=== PATIENT | male | born 2005 | race Two or more races ===

== ENCOUNTER 2025-01-28 19:55 | Emergency (ER) | payer MEDICAID, SELFPAY ==
[2025-01-28 19:58] VITALS: BMI 22.8
[2025-01-28 20:36] VITALS: BP 112/78; PULSE 66; RESP 18; TEMP 37.2; O2SAT 99
--- NOTE | 2025-01-28 20:55 | PD.EDNV ---
Nausea/Vomit./Diarrhea-RME/HPI General Chief complaint: Nausea/Vomiting/Diarrhea Stated complaint: N/V, RIGHT RIB PAIN, NON TRAUMATIC Time Seen by Provider: 01/28/25 20:30 Source: patient, RN notes reviewed and old records reviewed Arrival date/time: 01/28/25 19:55 Mode of arrival: ambulatory Limitations: no limitations RME / HPI RME / HPI Narrative: 19yom presents to ED for nausea and times episodes of vomiting that started today. Patient now c/o abdominal cramping to RUQ. No fever, shortness of breath, diarrhea or urinary symptoms reported. No medications or treatments since onset. Related Data Previous Rx's ?Medication ?Instructions ?Recorded dicyclomine 20 mg tablet 20 mg PO Q6HR PRN abdominal pain 01/28/25 #30 tabs ibuprofen 600 mg tablet 600 mg PO Q6H PRN pain #20 tabs 01/28/25 ondansetron 4 mg disintegrating 4 mg PO Q6H PRN nausea and 01/28/25 tablet vomiting #10 tabs Allergies Allergy/AdvReac Type Severity Reaction Status Date / Time No Known Allergies Allergy Verified 01/28/25 19:58 Review of Systems Review of Systems Systems Reviewed: All systems reviewed, normal except as documented Constitutional Constitutional: Denies chills and Denies fever(s) Cardiovascular Cardiovascular: Denies chest pain and Denies dyspnea Respiratory Respiratory: Denies dyspnea Gastrointestinal Gastrointestinal: Reports abdominal pain, Denies loose stools, Reports nausea and Reports vomiting Genitourinary Genitourinary: Denies dysuria, Denies flank pain and Denies hematuria Past Medical History Surgical History OTHER SURGICAL HX: Denies past surgical history Social History SMOKING STATUS: Never smoker SUBSTANCE USE: does not use ALCOHOL: Never Past Medical History Comments PMH COMMENT: Denies past medical history ED Exam General Limitations: Present no limitations General appearance: Present alert and in no apparent distress Head Head exam: Present atraumatic and normocephalic Eye Eye exam: Present normal appearance, PERRL and EOMI ENT ENT exam: Present normal exam and mucous membranes moist Neck Neck exam: Present normal inspection and full ROM Chest Chest inspection: Present normal inspection and symmetric chest wall rise Respiratory Respiratory exam: Present normal lung sounds bilaterally; Absent respiratory distress Cardiovascular Cardiovascular exam: Present regular rate and normal rhythm Abdominal Exam Abdominal exam: Present soft and tenderness (RUQ, mild); Absent distention, guarding or rebound Extremities Exam Extremities exam: Present normal inspection and full ROM Neurological Exam Neurological exam: Present alert and oriented X3 Psychiatric Psychiatric exam: Present normal affect and normal mood Skin Skin exam: Present warm, dry, intact and normal color Course Quality Measures none Orders Category Date Time Status CBC Stat Lab 01/28/25 21:00 Completed CMP [Comprehensive Metabolic Panel] Stat Lab 01/28/25 21:00 Completed Drug Screen,Urine Stat Lab 01/28/25 21:39 Completed Lipase Stat Lab 01/28/25 21:00 Completed UA [Urinalysis] Stat Lab 01/28/25 21:39 Completed Ketorolac Inj [Toradol Inj] Med 01/28/25 20:54 Discontinued 30 mg IM X1 ONE Ondansetron Odt [Zofran Odt] Med 01/28/25 20:54 Discontinued 4 mg PO X1 ONE Vital Signs Vital signs: Vital Signs Temperature 99 F 01/28/25 20:36 Pulse Rate 66 01/28/25 20:36 Respiratory Rate 18 01/28/25 20:36 Blood Pressure 112/78 01/28/25 20:36 Pulse Oximetry (%) 99 01/28/25 20:36 Oxygen Delivery Method Room Air 01/28/25 20:36 Nausea/Vomiting/Diarrhea MDM Narrative MDM Narrative:: 19yom presents to ED for nausea and times episodes of vomiting that started today. Patient now c/o abdominal cramping to RUQ. No fever, shortness of breath, diarrhea or urinary symptoms reported. No medications or treatments since onset. Patient reassessed. He is feeling better, symptoms improved, tolerating po. Labs and exam reassuring. Encouraged rest, fluids, symptomatic treatment prn. Follow up with PCP as needed. Stable for discharge, RTED precautions given. Patient data External records reviewed:: [facility] previous records (None) Clinical information provided by:: patient Social determinants that could affect healthcare access:: other (specify) (Poor access to healthcare) Patient has the following chronic illnesses:: None How is presenting disease/condition affected by chronic disease/condition?: no chronic disease Evaluation data The following diagnostics were reviewed and interpreted by me:: lab results Lab and/or radiology exams considered but not ordered:: Gallbladder US: Do not suspect cholelithiasis/cholecystitis Interpretation Summary: No leukocytosis No PEDRO LUIS LFTs and lipase wnl UA negative Negative UDS Medications / Prescriptions Medications / Prescriptions considered but not ordered:: No antibiotics recommended at this time Medication administrations:: Medication Administration History Discontinued Medications Ketorolac Tromethamine (Ketorolac Inj 30 Mg/Ml Vial) 30 mg IM X1 ONE Stop: 01/28/25 20:55 Last Admin: 01/28/25 21:05 Dose: 30 mg Documented By: Ondansetron HCl (Ondansetron Odt 4 Mg Tabrap) 4 mg PO X1 ONE; Protocol Stop: 01/28/25 20:55 Last Admin: 01/28/25 21:05 Dose: 4 mg Documented By: Above medications administered in ED Consultations Consultation(s) initiated? (list below): No Diagnosis Nausea Differential Diagnosis: other (Vomiting, gastroenteritis, food poisoning, dehydration, electrolyte imbalance, kidney stone) Most likely diagnosis given after review of the tests above:: Nausea and vomiting Admission Indicated Admission indicated?: not indicated Admission Request Was there a request for admission?: No Disposition Plan Disposition Plan: Discharge Discharge Attestation Discharge Attestation: The patient and all family members were given an opportunity to ask questions and understood the discharge instructions. Discharge instructions specifically effects, indications for sooner follow up or return to the emergency department, and the expected course of current diagnosis. Patient condition: Stable Discharge Plan Plan Patient Disposition: HOME (Self Care) Patient condition on transfer: Stable Prescriptions/Referrals Prescriptions/Med Rec: New ondansetron 4 mg tablet,disintegrating 4 mg PO Q6H PRN (Reason: nausea and vomiting) Qty: 10 0RF dicyclomine 20 mg tablet 20 mg PO Q6HR PRN (Reason: abdominal pain) Qty: 30 0RF ibuprofen 600 mg tablet 600 mg PO Q6H PRN (Reason: pain) Qty: 20 0RF Referrals: Sera Power MD [Primary Care Provider] - In 1 week Problem List Clinical Impression: Nausea and vomiting Patient/Caregiver Discharge Instructions Additional Instructions: Make sure to stay hydrated, drink plenty of fluids. Ibuprofen or Tylenol can be taken as needed for pain. Follow-up with your primary care physician as needed. Print Language: Yakut Stand Alone Forms: Katherine Award Info., Patient Portal Info Letter MARNI/RIGO Supervising Physician MARNI/RIGO Supervising Physician: Sai
[2025-01-28] MEDS: ONDANSETRON ODT 4 MG TABRAP PO (21:05)
[2025-01-28] MEDS: KETOROLAC INJ 30 MG/ML VIAL IM (21:05)
[2025-01-28 21:09] LABS: Basophils # (Auto) 0.1 Thou/mm3 (0.0-0.2); Basophils % (Auto) 1 % (0-2.5); Eosinophils # (Auto) 0.1 Thou/mm3 (0.0-0.5); Eosinophils % (Auto) 1 % (0-10); Hematocrit 42.6 % (41.0-53.0); Hemoglobin 15.5 g/dL (13.5-16.0); Immature Granulocytes Auto 0.01 Thou/mm3 (0.00-0.00); Lymphocytes # (Auto) 1.5 Thou/mm3 (1.0-5.0); Lymphocytes % (Auto) 21 % (10-50); Mean Corpuscular HGB Conc 36.4 g/dl (31.0-37.0); Mean Corpuscular Hemoglobin 30.6 pg (25.0-35.0); Mean Corpuscular Volume 84 fL (80-100); Monocytes # (Auto) 0.6 Thou/mm3 (0.0-0.8); Monocytes % (Auto) 8 % (0-12); Neutrophils # (Auto) 5.2 Thou/mm3 (1.8-7.7); Neutrophils % (Auto) 70 % (37-80); Nucleated Red Blood Cell # 0.00 Thou/mm3 (0.00-0.00); Nucleated Red Blood Cell % 0 /100 WBC (0); Platelet Count 305 Thou/mm3 (140-440); RDW Standard Deviation 37.2 fL (35.1-43.9); Red Blood Count 5.06 Miln/mm3 (4.50-5.90); White Blood Count 7.4 Thou/mm3 (4.5-11.0)
[2025-01-28 21:30] LABS: Alanine Aminotransferase 16 U/L (10-49); Albumin, Serum 5.2 gm/dL (3.5-5.0); Albumin/Globulin Ratio 2.5 (1.2-2.2); Alkaline Phosphatase 95 U/L (46-116); Anion Gap 8 (7-16); Aspartate Amino Transferase 24 U/L (0-34); BUN/Creatinine Ratio 14 Ratio (12-20); Bilirubin,Total 0.9 mg/dL (0.3-1.2); Blood Urea Nitrogen 15 mg/dL (9-23); Calcium 10.2 mg/dL (8.3-10.6); Calcium (Corrected) 10.2 mg/dL (8.5-10.1); Carbon Dioxide 30.8 mMol/L (20.0-31.0); Chloride 103 mMol/L (98-107); Creatinine (Component) 1.1 mg/dL (0.6-1.3); Estimated Creatinine Clearance 107.4 mL/min (>60); Globulin 2.1 gm/dL (2.3-3.5); Glucose 90 mg/dL (74-106); Lipase 40 U/L (12-53); Osmolality,Calculated 283 (275-295); Potassium 3.7 mMol/L (3.4-5.1); Sodium 142 mMol/L (136-145); Total Protein 7.3 gm/dL (5.7-8.2); eGFR > 60 See Note
[2025-01-28 21:54] LABS: Collection Type, Urine Clean Catch; Squamous Epithelial Cell,Urine 0 /hpf (0-5)
[2025-01-28 22:04] LABS: Amorphous Crystals,Urine Present (Absent); Bilirubin,Urine Negative (Negative); Blood,Urine Negative (Negative); Clarity,Urine Clear (Clear/Hazy); Color,Urine Yellow (Lt Yel-Yel); Glucose, Urine Negative (Negative); Ketones,Urine Negative (Negative); Leukocyte Esterase,Urine Negative (Negative); Nitrite,Urine Negative (Negative); PH,Urine 6.5 (5.0-7.0); Protein,Urine Trace (Neg - Trace); RBC,Urine 11 /hpf (0-3); Specific Gravity,Urine 1.032 (1.001-1.035); Urobilinogen,Urine Negative mg/dL (0.0-1.0); WBC,Urine 2 /hpf (0-5)
[2025-01-28 22:10] LABS: Amphetamine/Methamp Scrn,U Negative (Negative); Barbiturate Screen,Urine Negative (Negative); Benzodiazepines Screen,Urine Negative (Negative); Benzoylecgonine Screen, Ur Negative (Negative); Fentanyl Screen,Urine Negative (Negative); Opiate Screen,Urine Negative (Negative); THC Screen,Urine Negative (Negative)
== END 2025-01-28 22:25 | disposition home or self-care (01) ==
PROVIDERS: Physician Assistant; Emergency Provider Emergency Medicine; PCP Family Medicine
DX: R11.2 Nausea with vomiting, unspecified (principal)
CPT/HCPCS: 36415; 80053; 80307; 81001; 83690; 85025; 96372; 99283; J1885; Q0162